=== PATIENT | male | born 1930 | race Caucasian/White ===

== ENCOUNTER 2017-11-26 20:40 | Observation (INO) | payer MEDICARE ==
[~2017-11-26] VITALS: Ht 185.4 cm; Wt 92.5 kg
[~2017-11-26 20:40] MED LIST: ADULT ASPIRIN E81 MG PO; DONEPEZIL10 MG PO; EQ STOOL SOFTE100 MG PO; GABAPENTIN300 M2 PO; ISOSORB MONO20 M1 PO; MIRTAZAPINE30 MG PO; NAMENDA XR28 MG PO; NITROGLYCERIN0.4 MG SL; VITAMIN B-121000 MCG PO; VITAMIN D32000 UNIT PO; VITAMIN E 1000 UNIT PO; ZOCOR10 MG PO
--- NOTE | 2017-11-26 21:25 | NUR ---
PT AMB WITH SLOW GAIT TO RM 12 WITH HIS SON.
--- NOTE | 2017-11-26 21:50 | NUR ---
DR SANCHEZ AT BEDSIDE.
--- NOTE | 2017-11-26 23:04 | NUR ---
PT TO XRAY.
--- NOTE | 2017-11-26 23:27 | NUR ---
RETURNED FROM [facility].
--- NOTE | 2017-11-26 23:43 | NUR ---
DR SANCHEZ PERFORMED RECTAL EXAM.
--- NOTE | 2017-11-26 23:54 | NUR ---
GLYCERIN SUPP INSERTED, BEDSIDE COMMODE AT BEDSIDE.
--- NOTE | 2017-11-27 00:37 | NUR ---
PT SITTING ON BEDSIDE COMMODE, ATTEMPTING TO HAVE BM.
--- NOTE | 2017-11-27 00:46 | NUR ---
REPORT CALLED TO RUPA CHRIS.
[2017-11-27 01:00] VITALS: BP 151/71
--- NOTE | 2017-11-27 01:00 | NUR ---
PT TO RM 271 WITH RN. PT HAD ONLY SMALL LIQUID STOOL IN BSC.
[2017-11-27 01:33] LABS: HEMATOCRIT 38.9 % (39.0-50.0); IMMATURE GRANULOCYTES 0.4 % (0.0-1.0); MEAN CORPUSCULAR HGB 33.4 pG CALC (26.0-32.0); MEAN CORPUSCULAR HGB CONC 33.4 g/L CALC (32.0-36.0); NEUT# 7.33 thou/uL (1.82-7.42); RED BLOOD COUNT 3.89 mill/uL (4.70-6.10); RED CELL DISTRI WIDTH 12.8 % (11.5-15.5)
[2017-11-27 02:10] LABS: ALBUMIN 3.9 g/dL (3.2-5.0); ALKALINE PHOSPHATASE 75 u/l (38-126); ANION GAP 15 (6-22 (CALC)); BILIRUBIN, TOTAL 0.4 mg/dL (0.0-1.4); BUN 20 mg/dL (8-23); BUN/CREATININE RATIO 18 (12-20 (CALC)); CALCIUM 9.6 mg/dL (8.4-10.2); CARBON DIOXIDE 24 mmol/l (22-30); CHLORIDE 109 mmol/l (95-108); CREATININE 1.1 mg/dL (0.7-1.3); GFR > 60 ML/MIN (>=60 (CALC)); GFR FOR AFR.AMER. > 60 ML/MIN (>=60 (CALC)); GLUCOSE 118 mg/dL (82-115); SGOT/AST 23 u/l (19-48); SGPT/ALT 32 u/l (11-66); SODIUM 145 mmol/l (137-146); TOTAL PROTEIN 6.7 g/dL (6.3-8.2)
--- NOTE | 2017-11-27 02:47 | NUR ---
PATIENT RESTING IN BED AT THIS TIME WITH SON IN RECLINER AT BEDSIDE. PATIENT HAS RECIEVED 3 SMALL SSE WITH SMALL AMT OF LIQUID BROWN RESULTS. PATIENT WAS NOT ABLE TO TOLERATED MORE THAN 250CC OF SSE AT A TIME. AFTER DOING DIGITAL EXAM PRIOR TO THE ENEMAS STOOL IN THE VAULT WAS SOFT BUT PATIENT WAS RESISTANT TO ANY KIND OF DIGITAL DISIMPACTION. PATIENT WAS ASSIST UP TO THE BSC X3 WITH LITTLE ACTUAL STOOL. SAFETY PRECAUTIONS REINFORCED. CALL LIGHT IN REACH. WILL CONT TO MONITOR.
--- NOTE | 2017-11-27 04:17 | NUR ---
PATIENT ASSISTED TO THE -SMALL AMT OF LIQUID BROWN STOOL. PATIENT VOIDED IN URINAL AND URINE SPEC OBTAIN AND SENT TO LAB. ASSISTED BACK TO THE BED. PATIENT CONT TO GET AGITATED WHEN TRYING TO PROVIDE PERSONEL HYGEINE CARE. SAFETY PRECAUTIONS REINFORCED WITH PATIENT AND SON. CALL LIGHT IN REACH. WILL CONT TO MONITOR.
--- NOTE | 2017-11-27 05:25 | NUR ---
PATIENT BACK UP TO THE BR FOR SMALL AMT OF LOOSE BROWN STOOL. PATIENT CONT TO BECOME AGITATED WHEN ATTEMPTING TO PROVIDE YARON-CARE WITH SOAP AND H20. BACK TO BED. CALL LIGHT IN REACH. WILL CONT TO MONITOR.
[2017-11-27 06:29] LABS: URINE BILIRUBIN - DIPSTICK NEGATIVE (NEGATIVE); URINE BLOOD DIPSTICK NEGATIVE (NEGATIVE); URINE CLARITY CLEAR; URINE COLOR YELLOW; URINE GLUCOSE - DIPSTICK NEGATIVE (NEGATIVE); URINE KETONE NEGATIVE (NEGATIVE); URINE LEUK ESTERASE NEGATIVE (NEGATIVE); URINE NITRITE - DIPSTICK NEGATIVE (Negative); URINE PROTEIN - DIPSTICK NEGATIVE (NEG-TRACE); URINE SPECIFIC GRAVITY 1.025; URINE UROBILINOGEN - DIPSTICK 0.2 E.U./dL (0.2)
--- NOTE | 2017-11-27 07:00 | NUR ---
RECEIVED BEDSIDE REPORT FROM RUPA CHRIS. RESTING IN BED WITH EYES CLOSED, AWAKENS EASILY. RESPS EVEN AND UNLABORED ON ROOM AIR. REQUESTS ASSIST TO BATHROOM. PLAN OF CARE DISCUSSED. SAFETY PRECAUTIONS REINFORCED. FAMILY AT BEDSIDE. BED IN LOWEST POSITION WITH WHEELS LOCKED. CALL LIGHT WITHIN REACH. ENCOURAGED PT AND FAMILY TO CALL FOR ANY NEEDS.
[2017-11-27 08:55] VITALS: BP 127/43
--- NOTE | 2017-11-27 12:25 | NUR ---
IN HIGH FOWLERS EATING LUNCH. RESPS EVEN AND UNLABORED ON ROOM AIR. NO APPARENT DISTRESS NOTED. SON AT BEDSIDE. DR MERIDA IN WITH PT. MEDICATED WITH MILK OF MAG PO FOR CONSTIPATION. AWAITING NEW ORDERS. CALL LIGHT WITHIN REACH.
--- NOTE | 2017-11-27 16:16 | NUR ---
IN SEMI FOWLERS. RESPS EVEN AND UNLABORED ON ROOM AIR. ASSISTED TO BEDSIDE COMMODE, LARGE FORMED BROWN STOOL, YARON CARE PROVIDED BY JAYLIN HERNADEZ. REORIENTED TO TIME AND PLACE. SAFETY PRECAUTIONS REINFORCED. BED ALARM ON FOR SAFETY. CALL LIGHT WITHIN REACH. WILL CONTINUE TO MONITOR.
--- NOTE | 2017-11-27 21:15 | NUR ---
PT APPEARS TO BE RESTING IN HIGH FOWLERS POSITION;PT PLEASANT,DENYING ANY PAIN CURRENTLY;ASSESSMENT COMPLETED;RESPIRATIONS EVEN AND UNLABORED ON RA;SKIN INTACT;NO IV SITE,MD AWARE;PT CONFUSED AT TIMES,WILL RE-ORIENT ACCORDINGLY;BED ALARM ON FOR PT SAFETY AND FALL PRECAUTIONS REINFORCED;VS OBTAINED AND FRESH WATER PROVIDED;PT VOICES NO OTHER NEEDS AT THIS TIME;BED IN THE LOWEST POSITION;CALL LIGHT IN REACH;WILL CONTINUE TO MONITOR
--- NOTE | 2017-11-28 01:00 | NUR ---
PT APPEARS TO BE SLEEPING IN SEMI FOWLERS POSITION;RESPIRATIONS EVEN AND UNLABORED ON RA;NO S/S OF DISTRESS NOTED;BED ALARM ON FOR SAFETY;CALL LIGHT IN REACH;WILL CONTINUE TO MONITOR
[2017-11-28 04:25] VITALS: BP 151/66
--- NOTE | 2017-11-28 04:25 | NUR ---
PT APPEARS TO BE SLEEPING IN SUPINE POSITION;WOKE PT TO OBTAIN VS;PT UNWILLING TO GET VS OR LAB WORK THIS MORNING;COMBATIVE AND UNCOOPERATIVE;ATTEMPTED TO RE-ORIENT PT BUT REFUSES;BED ALARM ON FOR SAFETY;WILL CONTINUE TO MONITOR
--- NOTE | 2017-11-28 07:00 | NUR ---
SHIFT CHANGE REPLRT FROM KERLINE, PT SLEEPING, BREATHING EVEN AND NON-LABORED, NO SIGN DISCOMFORT, CALL VALDEZ IN REACH AND BED ALARM IN PLACE.
[2017-11-28 09:51] VITALS: BP 143/65
[2017-11-28 09:54] VITALS: BP 143/65
--- NOTE | 2017-11-28 10:12 | NUR ---
ALERT, DISORIENTED TO PLACE AND TIME, INFORMED OF MD'S ORDER FOR LAB WORKUP AND DESCRIPTION PF PROCEDURE, PT COMPLIANT AND BLOOD SAMPLES DRAWN AND SENT TO LAB. PT ALSO C/O ITCHING TO R. BALL OF FOOT, LOTION APPLIED BUT WAS NOT EFFECTIVE, WARM COMPRESS APPLIED AND PT REPORTED IT HELPED VERY WELL, WILL CONTINUE TO MONITOR.
[2017-11-28 10:21] LABS: HEMATOCRIT 41.6 % (39.0-50.0); HEMOGLOBIN 13.7 g/dl (14.0-18.0); MEAN CELL VOLUME 100.7 fL CALC (80.0-100.0); MEAN CORPUSCULAR HGB 33.2 pG CALC (26.0-32.0); MEAN CORPUSCULAR HGB CONC 32.9 g/L CALC (32.0-36.0); RED BLOOD COUNT 4.13 mill/uL (4.70-6.10)
[2017-11-28 10:44] LABS: ANION GAP 17 (6-22 (CALC)); BUN 18 mg/dL (8-23); BUN/CREATININE RATIO 16 (12-20 (CALC)); CALCIUM 9.8 mg/dL (8.4-10.2); CARBON DIOXIDE 28 mmol/l (22-30); CHLORIDE 106 mmol/l (95-108); CREATININE 1.1 mg/dL (0.7-1.3); GFR > 60 ML/MIN (>=60 (CALC)); GFR FOR AFR.AMER. > 60 ML/MIN (>=60 (CALC)); GLUCOSE 112 mg/dL (82-115); MAGNESIUM 2.3 mg/dL (1.6-2.3); POTASSIUM 3.7 mmol/l (3.5-5.1); SODIUM 147 mmol/l (137-146)
--- NOTE | 2017-11-28 12:00 | NUR ---
FAMILY AT BEDSIDE, PT EATING HEARTILY, NO C/O DISCOMFORT, D/C INSTRUCTIONS REVIEWED WITH SON, STATES UNDERSTANDING.
[2017-11-28] MEDS ORDERED: SEROQUEL25 MG PO (12:50)
--- NOTE | 2017-11-28 15:17 | NUR ---
Discharge instructions given. Patient verbalizes understanding of same. Discharged in good condition via Wheelchair to Home with family. All belongings sent with pt.
== END 2017-11-28 15:14 | disposition home health service (06) ==
LOC: ED 20:40 → ED-I 11-27 → ED 11-27 00:16 → MS2 11-27 00:17
PROVIDERS: ADMIT Internal Medicine; ATTEND Internal Medicine
DX: K56.41 Fecal impaction (principal); I10 Essential (primary) hypertension; G30.9 Alzheimer's disease, unspecified; F02.81 Dementia in other diseases classified elsewhere, unspecified severity, with behavioral disturbance; E78.5 Hyperlipidemia, unspecified; I25.10 Atherosclerotic heart disease of native coronary artery without angina pectoris; G62.9 Polyneuropathy, unspecified; Z86.73 Personal history of transient ischemic attack (TIA), and cerebral infarction without residual deficits

== ENCOUNTER 2018-05-20 17:51 | Emergency (ER) | payer MEDICARE ==
[~2018-05-20] VITALS: Ht 185.4 cm; Wt 90.0 kg
[~2018-05-20 17:51] MED LIST changes: +SEROQUEL25 MG PO
[2018-05-20 19:23] LABS: HEMATOCRIT 42.1 % (39.0-50.0); HEMOGLOBIN 13.9 g/dl (14.0-18.0); IMMATURE GRANULOCYTES 0.4 % (0.0-1.0); MEAN CELL VOLUME 101.7 fL CALC (80.0-100.0); MEAN CORPUSCULAR HGB 33.6 pG CALC (26.0-32.0); NEUT# 5.63 thou/uL (1.82-7.42); RED BLOOD COUNT 4.14 mill/uL (4.70-6.10); RED CELL DISTRI WIDTH 13.5 % (11.5-15.5)
[2018-05-20 19:33] LABS: ALBUMIN 4.1 g/dL (3.2-5.0); ALKALINE PHOSPHATASE 73 u/l (38-126); ANION GAP 12 (6-22 (CALC)); BILIRUBIN, TOTAL 0.4 mg/dL (0.0-1.4); BUN 16 mg/dL (8-23); BUN/CREATININE RATIO 14 (12-20 (CALC)); CARBON DIOXIDE 29 mmol/l (22-30); CHLORIDE 106 mmol/l (95-108); CREATININE 1.1 mg/dL (0.7-1.3); ETHYL ALCOHOL 0 mg/dl (0-30); GFR > 60 ML/MIN (>=60 (CALC)); GFR FOR AFR.AMER. > 60 ML/MIN (>=60 (CALC)); POTASSIUM 4.2 mmol/l (3.5-5.1); SGOT/AST 22 u/l (19-48); SGPT/ALT 33 u/l (11-66); SODIUM 144 mmol/l (137-146); TOTAL PROTEIN 7.6 g/dL (6.3-8.2)
[2018-05-20 19:45] LABS: MYOGLOBIN 27 ng/mL (0 - 121)
[2018-05-20 19:47] LABS: PROTHROMBIN TIME 10.9 SECONDS (9.0-12.5)
[2018-05-20 21:34] LABS: URINE BILIRUBIN - DIPSTICK NEGATIVE (NEGATIVE); URINE BLOOD DIPSTICK NEGATIVE (NEGATIVE); URINE COLOR YELLOW; URINE GLUCOSE - DIPSTICK NEGATIVE (NEGATIVE); URINE KETONE NEGATIVE (NEGATIVE); URINE LEUK ESTERASE NEGATIVE (NEGATIVE); URINE NITRITE - DIPSTICK NEGATIVE (Negative); URINE PH 5.5 (4.5-8.0); URINE PROTEIN - DIPSTICK NEGATIVE (NEG-TRACE); URINE SPECIFIC GRAVITY >=1.030; URINE UROBILINOGEN - DIPSTICK 0.2 E.U./dL (0.2)
[2018-05-20 21:39] LABS: BARBITURATES NEGATIVE (NEGATIVE); COCAINE NEGATIVE (NEGATIVE); METHADONE NEGATIVE (NEGATIVE); OXCYCODONE NEGATIVE (NEGATIVE); TETRAHYDROCANNABIONOL NEGATIVE (NEGATIVE); TRICYLIC ANTIDEPRESSANTS NEGATIVE (NEGATIVE); URINE CLARITY CLEAR
[2018-05-20 22:58] VITALS: BP 165/72
== END 2018-05-20 22:58 | disposition short-term general hospital (02) ==
LOC: ED 17:51 → ED-I 18:10 → ED 18:10 → ED-I 21:43 → ED 22:58
PROVIDERS: Emergency Medicine
DX: R41.82 Altered mental status, unspecified (principal); R00.1 Bradycardia, unspecified; I48.91 Unspecified atrial fibrillation; I10 Essential (primary) hypertension; G30.9 Alzheimer's disease, unspecified; F02.80 Dementia in other diseases classified elsewhere, unspecified severity, without behavioral disturbance, psychotic disturbance, mood disturbance, and anxiety; I25.10 Atherosclerotic heart disease of native coronary artery without angina pectoris; I25.119 Atherosclerotic heart disease of native coronary artery with unspecified angina pectoris; Z86.73 Personal history of transient ischemic attack (TIA), and cerebral infarction without residual deficits